=== PATIENT | male | born 1945 | race Caucasian/White ===

== ENCOUNTER 2020-04-23 06:23 | Observation (INO) | payer MEDICARE ==
[~2020-04-23] VITALS: Ht 182.9 cm; Wt 88.5 kg
[2020-04-23] MEDS: SODIUM CHLORIDE 0.9% 1,000 ML IV SCH ×3 (06:59→22:59)
[2020-04-23] MEDS ORDERED: CEFAZOLIN PMX 1GM/50ML 50 ML ONE (07:16)
[2020-04-23] MEDS ORDERED: FENTANYL PF 100 MCG/2ML ONE (07:16)
[2020-04-23] MEDS ORDERED: MIDAZOLAM 1 MG/ML, 5ML ONE (07:16)
[2020-04-23] MEDS ORDERED: CEFAZOLIN 1,000 MG ONE (07:17)
[2020-04-23] MEDS ORDERED: LIDOCAINE 2%, 20ML ONE (07:17)
[2020-04-23 07:32] LABS: BASOPHILS # (AUTO) 0.03 x10^3/uL (0-0.1); BASOPHILS % (AUTO) 1 % (0-1); EOSINOPHILS % (AUTO) 2 % (1-7); LYMPHOCYTES # (AUTO) 2.08 x10^3/uL (1-3.4); LYMPHOCYTES % (AUTO) 37 % (22-44); MD NO; MEAN CORPUSCULAR HEMOGLOBIN 30.7 pg (27.5-34.5); MEAN CORPUSCULAR HGB CONC 32.7 g/dL (33.2-36.2); MEAN CORPUSCULAR VOLUME 93.8 fL (81-97); MEAN PLATELET VOLUME 8.4 fL (7.4-10.4); MONOCYTES % (AUTO) 7 % (2-9); NEUTROPHILS % (AUTO) 53 % (42-75); PLATELET COUNT 174 x10^3/uL (130-400); RED BLOOD COUNT 4.72 x10^6/uL (4.38-5.82); RED CELL DISTRIBUTION WIDTH 13.4 % (9.4-14.8)
[2020-04-23 07:38] VITALS: BP 136/70
[2020-04-23] MEDS ORDERED: METO25TA35 PO (07:38)
[2020-04-23] MEDS ORDERED: GABA-827 PO (07:38)
[2020-04-23] MEDS ORDERED: ROSU10TA2 PO (07:38)
[2020-04-23] MEDS ORDERED: APIX5TAB PO (07:38)
[2020-04-23] MEDS ORDERED: METF500T27 PO (07:38)
[2020-04-23] MEDS ORDERED: LEVO25TA4 PO (07:38)
[2020-04-23 07:41] LABS: ANION GAP 4 mmol/L (5-15); CHLORIDE 108 mmol/L (98-107); CREATININE 1.49 mg/dL (0.7-1.3)
[2020-04-23 13:05] VITALS: BP 118/76
[2020-04-23] MEDS: CEFAZOLIN PMX 1GM/50ML 50 ML IV SCH ×2 (14:51→21:20)
[2020-04-23] MEDS: METOPROLOL TARTRATE 25 MG TAB PO SCH (17:29)
[2020-04-23 21:10] VITALS: BP 124/77
[2020-04-24] MEDS: CEFAZOLIN PMX 1GM/50ML 50 ML IV SCH (03:29)
[2020-04-24 03:33] VITALS: BP 114/71
[2020-04-24] MEDS ORDERED: HOLD MEDICATION MC PRN (04:30)
[2020-04-24] MEDS ORDERED: LEVOTHYROXINE 25 MCG TABLET PO SCH (06:00)
[2020-04-24] MEDS: METOPROLOL TARTRATE 25 MG TAB PO SCH (06:36)
[2020-04-24] MEDS: SODIUM CHLORIDE 0.9% 1,000 ML IV SCH (06:59)
[2020-04-24 07:15] VITALS: BP 117/74
[2020-04-24] MEDS ORDERED: metFORMIN XR 500 MG TAB.ER.24H PO SCH (09:00)
[2020-04-24] MEDS ORDERED: GABAPENTIN 300 MG CAPSULE PO SCH (09:00)
[2020-04-24] MEDS ORDERED: METO25TA35 PO (09:41)
== END 2020-04-24 10:55 | disposition home or self-care (01) ==
LOC: CACL 06:23 → 5SO 10:15 → CACL 11:46 → DCLOUNGE 04-24 10:47
PROVIDERS: ADMIT Internal Medicine Cardiovascular Disease; ATTEND Internal Medicine Cardiovascular Disease
DX: I49.5 Sick sinus syndrome (principal); I48.0 Paroxysmal atrial fibrillation; Z95.0 Presence of cardiac pacemaker; E78.2 Mixed hyperlipidemia; Z86.73 Personal history of transient ischemic attack (TIA), and cerebral infarction without residual deficits; Z79.01 Long term (current) use of anticoagulants; Z79.899 Other long term (current) drug therapy
CPT/HCPCS: 33208; 36415; 71045; 71046; 80048; 85025; 96365; 96366; 99156; 99157; C1779; C1785; C1892; G0378; J0690; J2250; J3010; J3490

== ENCOUNTER → 2020-05-07 | Day surgery (SDC) | payer MEDICARE ==
[~2020-05-07] VITALS: Ht 182.9 cm; Wt 86.4 kg
[~2020-05-07] MED LIST: APIX5TAB PO; FENTANYL PF 100 MCG/2ML ONE; GABA-827 PO; HEPARIN 1,000 UNITS/ML, 10ML ONE; LEVO25TA4 PO; LIDOCAINE-MPF 1%, 5ML ONE; METF500T27 PO; METO25TA35 PO; MIDAZOLAM 1 MG/ML, 5ML ONE; ROSU10TA2 PO; SODIUM CHLORIDE 0.9% 1,000 ML IV SCH; VERAPAMIL 2.5 MG/ML, 2ML ONE
[2020-05-07 10:44] VITALS: BP 121/81
== END | disposition home or self-care (01) ==
LOC: CACL 11:00
PROVIDERS: ATTEND Internal Medicine Cardiovascular Disease
DX: R55 Syncope and collapse (principal); I49.5 Sick sinus syndrome; I48.0 Paroxysmal atrial fibrillation; E78.5 Hyperlipidemia, unspecified; E03.9 Hypothyroidism, unspecified; Z79.01 Long term (current) use of anticoagulants; Z79.899 Other long term (current) drug therapy; Z95.0 Presence of cardiac pacemaker; Z98.890 Other specified postprocedural states; Z86.73 Personal history of transient ischemic attack (TIA), and cerebral infarction without residual deficits
CPT/HCPCS: 93458; C1769; C1894; J1644; J2250; J3010; Q9967

== ENCOUNTER → 2021-02-22 | Outpatient (CLI) | payer MEDICARE ==
[~2021-02-22] MED LIST changes: +ACET325T26 PO; -FENTANYL PF 100 MCG/2ML ONE; -HEPARIN 1,000 UNITS/ML, 10ML ONE; -LIDOCAINE-MPF 1%, 5ML ONE; -MIDAZOLAM 1 MG/ML, 5ML ONE; +REGADENOSON 0.4 MG/5 ML SYRINGE ONE; -SODIUM CHLORIDE 0.9% 1,000 ML IV SCH; -VERAPAMIL 2.5 MG/ML, 2ML ONE
== END | disposition home or self-care (01) ==
LOC: CFH 08:07
PROVIDERS: ATTEND Internal Medicine Cardiovascular Disease
DX: I48.0 Paroxysmal atrial fibrillation (principal); R55 Syncope and collapse
CPT/HCPCS: 78452; 93017; A9502; J2785

== ENCOUNTER 2021-04-12 07:53 | Observation (INO) | payer MEDICARE ==
[~2021-04-12] VITALS: Ht 182.9 cm; Wt 90.0 kg
[~2021-04-12 07:53] MED LIST changes: -REGADENOSON 0.4 MG/5 ML SYRINGE ONE
[2021-04-12] MEDS ORDERED: FLEC100T PO (08:21)
[2021-04-12] MEDS ORDERED: METO25TA91 PO (08:21)
[2021-04-12] MEDS ORDERED: CETI10CA PO (08:21)
[2021-04-12] MEDS ORDERED: SODIUM CHLORIDE 0.9% 1,000 ML IV SCH (08:30)
[2021-04-12] MEDS ORDERED: LIDOCAINE 1%, 20ML ONE (09:03)
[2021-04-12] MEDS ORDERED: MIDAZOLAM 1 MG/ML, 2ML ONE ×2 (09:16→09:44)
[2021-04-12] MEDS ORDERED: FENTANYL PF 100 MCG/2ML ONE ×2 (09:16→09:54)
[2021-04-12] MEDS ORDERED: FLECAINIDE 100MG TABLET PO SCH (21:00)
[2021-04-12] MEDS ORDERED: APIXABAN 5 MG TABLET PO SCH (21:00)
[2021-04-12] MEDS ORDERED: TEMPLATE NON-FORMULARY MED. (Rosuvastatin Calcium** (Crestor**) 10 MG) PO SCH (21:00)
[2021-04-12] MEDS ORDERED: TEMPLATE NON-FORMULARY MED. (Metformin Hcl** (Metformin Hcl Er**) 500 MG) PO SCH (21:00)
[2021-04-13] MEDS ORDERED: LEVOTHYROXINE 25 MCG TABLET PO SCH (09:00)
[2021-04-13] MEDS ORDERED: METOPROLOL SUCCINATE 25 MG TAB.ER.24H PO SCH (09:00)
[2021-04-13] MEDS ORDERED: GABAPENTIN 400 MG CAPSULE PO SCH (09:00)
[2021-04-13] MEDS ORDERED: TEMPLATE NON-FORMULARY MED. (Cetirizine Hcl** (Zyrtec**) 10 MG) PO SCH (09:00)
== END 2021-04-12 14:21 | disposition home or self-care (01) ==
LOC: CACL 07:53 → ORIP 10:10
PROVIDERS: ADMIT Internal Medicine Cardiovascular Disease; ATTEND Internal Medicine Cardiovascular Disease
DX: I48.0 Paroxysmal atrial fibrillation (principal); I48.3 Typical atrial flutter; I47.2 Ventricular tachycardia; I44.2 Atrioventricular block, complete; R55 Syncope and collapse; E11.9 Type 2 diabetes mellitus without complications; Z79.01 Long term (current) use of anticoagulants; Z79.899 Other long term (current) drug therapy; Z95.0 Presence of cardiac pacemaker
CPT/HCPCS: 93005; 93621; 93653; 99156; 99157; C1730; C1894; C2630; G0378; J2250; J3010; J3490